=== PATIENT | female | born 1945 | race Caucasian/White ===

== ENCOUNTER 2016-06-02 05:10 | Day surgery (SDC) | payer OTHER ==
[~2016-06-02] VITALS: Ht 170.2 cm; Wt 92.2 kg
[~2016-06-02 05:10] MED LIST: ASCORBIC ACID500 M3 PO; ASPIR 8181 M1 PO; ASPIRIN81 M2 PO; ATORVASTATIN CA40 MG PO; Aspirin E.C. PO; BIOTIN1000 MICRO PO; CHOLESTYRAMINE P4 GM PO; CITALOPRAM HBR20 MG PO; CYANOCOBALAM1000 MCG PO; Ditropan PO; FARXIGA10 MG PO; GLIPIZIDE XL10 MG PO; GLIPIZIDE10 MG PO; GLUCOTROL XL10 MG PO; GLUCOTROL10 MG PO; Glucovance 5/500 PO; HYOSCYAMINE0.125 MG PO; JANUVIA100 MG PO; LOMOTIL TABLET1 EACH PO; LOPRESSOR25 MG PO; LORAZEPAM1 MG PO; Lipitor PO; OMEPRAZOLE20 MG PO; PREMPRO PO; PRILOSEC40 MG PO; PROAMATINE5 MG PO; SANCTURA20 MG PO; TROSPIUM CHLORI20 MG PO; VIACTIV SOFT C1 EACH PO; VITAMIN B12-FO1 EACH PO; VITAMIN C500 M1 PO; celeXA PO
[2016-06-02 06:00] VITALS: BP 135/73
[2016-06-02 06:18] LABS: POINT-OF-CARE METER ID UU14174212
[2016-06-02 11:58] LABS: POINT-OF-CARE METER ID UU13113675; POINT-OF-CARE USER ID 515036437
[2016-06-02 13:06] VITALS: BP 156/76
[2016-06-02 14:38] VITALS: BP 137/63
== END 2016-06-02 14:38 | disposition home or self-care (01) ==
LOC: SDC 05:10 → NUC 07:00 → SDC 07:00
PROVIDERS: Surgery Surgical Oncology
DX: C50.311 Malignant neoplasm of lower-inner quadrant of right female breast (principal); Z17.0 Estrogen receptor positive status [ER+]; E11.9 Type 2 diabetes mellitus without complications; K21.9 Gastro-esophageal reflux disease without esophagitis; E78.5 Hyperlipidemia, unspecified; Z82.49 Family history of ischemic heart disease and other diseases of the circulatory system; Z83.3 Family history of diabetes mellitus; Z82.61 Family history of arthritis; Z79.82 Long term (current) use of aspirin; Z79.84 Long term (current) use of oral hypoglycemic drugs; Z88.2 Allergy status to sulfonamides
CPT/HCPCS: 78195; 78999; 82948; 88305; 88307; 88331; A9541; J0330; J0690; J1170; J2250; J3010; S0020